=== PATIENT | female | born 1995 | race Caucasian/White ===

== ENCOUNTER → 2024-11-13 12:21 | Outpatient (REF) | payer OTHER, SELFPAY | LOC: HWRAD 12:21 | PROVIDERS: ATTENDING PHYSICIAN Urology; FAMILY PHYSICIAN Nurse Practitioner Primary Care | DX: N94.10 Unspecified dyspareunia (principal); M62.89 Other specified disorders of muscle; N94.2 Vaginismus; N39.0 Urinary tract infection, site not specified | CPT/HCPCS: 76770; 76856 ==